=== PATIENT | female | born 1955 | race Caucasian/White ===

== ENCOUNTER → 2018-05-21 | Outpatient (CLI) | payer BC ==
--- NOTE | 2018-05-21 20:47 | Diagnostic Imaging Report ---
INDICATION: Routine screening. Comparison is made with prior mammogram from 11/26/2011. 2-D and 3-D bilateral screening mammography was performed with a Computer Aided Detection (CAD) system. FINDINGS: Scattered fibroglandular densities are identified bilaterally. Previously noted nodular density in the inferior and medial left breast is no longer visualized. No new masses identified. No malignant appearing microcalcifications are seen. The axillae are unremarkable. IMPRESSION: No mammographic features suspicious for malignancy are identified. ACR BI-RADS Category 1: Negative. Result letter will be mailed to the patient. Note: At least 10% of breast cancer is not imaged by mammography. Dictated by: Dictated on workstation # [id number]
== END ==
LOC: RAD 12:55
PROVIDERS: ATTEND Family Medicine
DX: Z12.31 Encounter for screening mammogram for malignant neoplasm of breast (principal)
CPT/HCPCS: 77067

== ENCOUNTER 2018-10-03 11:00 | Emergency (ER) | payer BC ==
[~2018-10-03] VITALS: Ht 162.6 cm; Wt 62.6 kg
[2018-10-03] MEDS ORDERED: fentaNYL INJECTION 100 MCG/2 ML AMP IVP STA ×2 (11:14→15:11)
[2018-10-03] MEDS ORDERED: LACTATED RINGERS 1,000 ML IV STA (11:14)
[2018-10-03] MEDS ORDERED: FAMOTIDINE 20MG/2ML IV (PEPCID) IV STA (11:14)
[2018-10-03] MEDS ORDERED: ONDANSETRON 4 MG/2 ML (SDV) Z0FRAN IVP ONE (11:15)
--- NOTE | 2018-10-03 11:23 | ED GI ---
General Stated Complaint: VOMITTING,FEVER,DIARRHEA Source of Information: Patient Exam Limitations: No Limitations History of Present Illness Date Seen by Provider: Oct 03, 2018 Time Seen by Provider: 11:08 Initial Comments Here with report of nausea, vomiting, diarrhea and epigastric and upper abdominal pain for the last 2 days. Onset 2 days ago with vomiting and vomited multiple times. States it hurts after that. Does have history of hepatitis C and sometimes has liver pain but this is worse than she's had before. Denies blood in her vomitus or stool. She is unable to take her medicines or drink any fluids for the last 2 days. Reports that she is weak overall. No report of fever. States that her enzymes been up recently with respect to her liver. Timing/Duration: 2-3 Days Severity/Quality: Moderate, Severe, Aching, Burning Location: Epigastric Radiation: RUQ, LUQ Activities at Onset: None Modifying Factors: Worsens With Eating Associated Symptoms: No Back Pain, No Chest Pain, No Fever/Chills; Fatigue, Heartburn, Nausea/Vomiting; No Shortness of Air, No Syncope; Weakness Allergies and Home Medications Allergies Coded Allergies: No Known Drug Allergies (Unverified , 10/03/18) Patient Home Medication List Home Medication List Reviewed: Yes Review of Systems Review of Systems Constitutional: see HPI EENTM: No Symptoms Reported Respiratory: Denies Shortness of Air, Denies Wheezing Cardiovascular: Denies Chest Pain, Denies Edema; Palpitations Gastrointestinal: Abdominal Pain, Diarrhea, Nausea; Denies Rectal Bleeding; Vomiting Genitourinary: No Symptoms Reported Musculoskeletal: no symptoms reported Skin: no symptoms reported Psychiatric/Neurological: See HPI All Other Systems Reviewed Negative Unless Noted: Yes Past Ssbjcal-Ozkzah-Nxhyxf Hx Past Med/Social Hx: Reviewed Nursing Past Med/Soc Hx Patient Social History Alcohol Use: Denies Use Recreational Drug Use: No Smoking Status: Current Someday Smoker Recent Foreign Travel: No Contact w/Someone Who Travel: No Past Medical History Surgeries: Yes (tubal 4, liver biopsy) Tonsillectomy Respiratory: No Cardiac: Yes Hypertension Neurological: No Reproductive Disorders: Yes Genitourinary: No Gastrointestinal: No Musculoskeletal: No Endocrine: Yes Diabetes, Non-Insulin dep Cancer: No Psychosocial: Yes Anxiety Family Medical History Reviewed Nursing Family Hx Heart Disease Physical Exam Vital Signs Vital Signs - First Documented 10/03/18 11:03 Temp 98.5 Pulse 120 Resp 14 B/P (MAP) 125/90 (102) Pulse Ox 94 O2 Delivery Room Air Capillary Refill : Height/Weight/BMI Height: '" Weight: lbs. oz. kg; BMI Method: General Appearance: WD/WN, moderate distress HEENT: PERRL/EOMI, pharynx normal Neck: full range of motion, supple Respiratory: lungs clear, normal breath sounds Cardiovascular: no murmur, tachycardia Peripheral Pulses: 2+ Dorsalis Pedis (R), 2+ Left Dors-Pedis (L), 2+ Radial Pulses (R), 2+ Radial Pulses (L) Gastrointestinal: soft, tenderness (epigastric and bilateral upper quadrants) Extremities: non-tender, normal inspection Back: normal inspection, no CVA tenderness, no vertebral tenderness Neurologic/Psychiatric: alert, oriented x 3 Skin: normal color, warm/dry Progress/Results/Core Measures Results/Orders Lab Results Laboratory Tests Test 10/03/18 11:20 10/03/18 12:50 Range/Units White Blood Count 22.6 H 4.3-11.0 10^3/uL Red Blood Count 4.21 L 4.35-5.85 10^6/uL Hemoglobin 12.9 11.5-16.0 G/DL Hematocrit 39 35-52 % Mean Corpuscular Volume 93 80-99 FL Mean Corpuscular Hemoglobin 31 25-34 PG Mean Corpuscular Hemoglobin Concent 33 32-36 G/DL Red Cell Distribution Width 14.7 H 10.0-14.5 % Platelet Count 271 130-400 10^3/uL Mean Platelet Volume 10.7 H 7.4-10.4 FL Neutrophils (%) (Auto) 75 42-75 % Lymphocytes (%) (Auto) 17 12-44 % Monocytes (%) (Auto) 8 0-12 % Eosinophils (%) (Auto) 0 0-10 % Basophils (%) (Auto) 0 0-10 % Neutrophils # (Auto) 17.0 H 1.8-7.8 X 10^3 Lymphocytes # (Auto) 3.8 1.0-4.0 X 10^3 Monocytes # (Auto) 1.7 H 0.0-1.0 X 10^3 Eosinophils # (Auto) 0.1 0.0-0.3 10^3/uL Basophils # (Auto) 0.1 0.0-0.1 10^3/uL Neutrophils % (Manual) 76 % Lymphocytes % (Manual) 15 % Monocytes % (Manual) 3 % Eosinophils % (Manual) 0 % Basophils % (Manual) 2 % Band Neutrophils 3 % Reactive Lymphocytes 1 % Blood Morphology Comment NORMAL Sodium Level 131 L 135-145 MMOL/L Potassium Level 3.8 3.6-5.0 MMOL/L Chloride Level 101 98-107 MMOL/L Carbon Dioxide Level 23 21-32 MMOL/L Anion Gap 7 5-14 MMOL/L Blood Urea Nitrogen 18 7-18 MG/DL Creatinine 0.99 0.60-1.30 MG/DL Estimat Glomerular Filtration Rate 57 BUN/Creatinine Ratio 18 Glucose Level 189 H 70-105 MG/DL Calcium Level 9.0 8.5-10.1 MG/DL Corrected Calcium 9.7 8.5-10.1 MG/DL Total Bilirubin 1.0 0.1-1.0 MG/DL Aspartate Amino Transf (AST/SGOT) 28 5-34 U/L Alanine Aminotransferase (ALT/SGPT) 35 0-55 U/L Alkaline Phosphatase 115 40-136 U/L Troponin I 0.030 H <0.028 NG/ML Total Protein 10.1 H 6.4-8.2 GM/DL Albumin 3.1 L 3.2-4.5 GM/DL Amylase Level 46 25-125 U/L Lipase 24 8-78 U/L Urine Color TONY H Urine Clarity CLEAR Urine pH 5 5-9 Urine Specific Santa Claus 1.025 H 1.016-1.022 Urine Protein 3+ H NEGATIVE Urine Glucose (UA) NEGATIVE NEGATIVE Urine Ketones 1+ H NEGATIVE Urine Nitrite NEGATIVE NEGATIVE Urine Bilirubin 1+ H NEGATIVE Urine Urobilinogen 1 NORMAL MG/DL Urine Leukocyte Esterase 1+ H NEGATIVE Urine RBC (Auto) 1+ H NEGATIVE Urine RBC RARE /HPF Urine WBC 0-2 /HPF Urine Squamous Epithelial Cells 0-2 /HPF Urine Crystals NONE /LPF Urine Bacteria FEW H /HPF Urine Casts PRESENT /LPF Urine Hyaline Casts 25-50 H /LPF Urine Granular Casts 2-5 H /LPF Urine Mucus SMALL H /LPF Urine Culture Indicated NO My Orders Orders - YESSY SANCHEZ MD Ondansetron Injection (Zofran Injectio (10/03/18 11:15) Lactated Ringers (Lr 1000 Ml Iv Solution (10/03/18 11:14) Famotidine Injection (Pepcid Injection) (10/03/18 11:14) Ed Iv/Invasive Line Start (10/03/18 11:14) Fentanyl Injection (Sublimaze Injection (10/03/18 11:14) Amylase (10/03/18 11:14) Cbc With Automated Diff (10/03/18 11:14) Comprehensive Metabolic Panel (10/03/18 11:14) Lipase (10/03/18 11:14) Ua Culture If Indicated (10/03/18 11:14) Troponin I (10/03/18 11:14) Ekg Tracing (10/03/18 11:14) Monitor-Rhythm Ecg Trace Only (10/03/18 11:14) Manual Differential (10/03/18 11:20) Ct Abdomen/Pelvis W (10/03/18 13:18) Iohexol Injection (Omnipaque 350 Mg/Ml 1 (10/03/18 14:00) Received Contrast (Hold Metformin- Contr (10/03/18 14:00) Sodium Chloride Flush (Catheter Flush Sy (10/03/18 14:00) Ns (Ivpb) (Sodium Chloride 0.9% Ivpb Bag (10/03/18 14:00) Ed Iv/Invasive Line Start (10/03/18 14:56) Ns Iv 1000 Ml (Sodium Chloride 0.9%) (10/03/18 14:56) Fentanyl Injection (Sublimaze Injection (10/03/18 15:11) Chest Pa/Lat (2 View) (10/03/18 15:14) Medications Given in ED Current Medications Medications Dose Ordered Sig/Bridger Route Start Time Stop Time Status Last Admin Dose Admin Iohexol 100 ml ONCE ONCE IV 10/03/18 14:00 10/03/18 14:01 DC 10/03/18 14:04 79 ML Ondansetron HCl 4 mg ONCE ONCE IVP 10/03/18 11:15 10/03/18 11:18 DC 10/03/18 11:27 4 MG Sodium Chloride 10 ml NEEDED PRN IV 10/03/18 14:00 10/03/18 14:05 10 ML Sodium Chloride 100 ml ONCE ONCE IV 10/03/18 14:00 10/03/18 14:01 DC 10/03/18 14:04 80 ML Sodium Chloride 1,000 ml @ 0 mls/hr Q0M ONCE IV 10/03/18 14:56 10/03/18 14:58 DC 10/03/18 16:50 1,000 MLS/HR Vital Signs/I&O 10/03/18 10/03/18 11:03 16:24 Temp 98.5 Pulse 120 88 Resp 14 16 B/P (MAP) 125/90 (102) 122/76 (91) Pulse Ox 94 94 O2 Delivery Room Air Progress Progress Note : Progress Note Seen and evaluated. IV, labs, UA, LR 1 L bolus, Zofran 4 mg IV and fentanyl 50 g IV ordered. Pepcid 20 mg IV ordered. We will check EKG. Monitor patient. 1318: CT abdomen pelvis ordered due to markedly elevated white count. Patient is feeling better after meds. 1705: Patient did have repeat fentanyl 50 g IV. Overall her pain is much better. CT is very concerning for a mass within the liver and extrinsic to the liver. This was discussed with the radiologist. We did get a chest x-ray to evaluate for mass in the chest and that was negative. I have discussed the case with Dr. Vilchis who was working on setting up appointment with Dr. Sukhwinder Lynne at the clinic and the clinic will call the patient on Saturday. I also discussed the case with Dr. Mackenzie and he will see the patient late Saturday or Saturday for further evaluation as well and to set her up for colonoscopy and further evaluation through the surgical round. All of this was discussed with the patient and family who are very appreciative of help with setting up follow-up. I will write for pain medicines through Saturday given her findings of likely metastatic cancer and mass as well as nausea medicines. I will send a copy of the chart to Dr. Lynne and Dr. Mackenzie. Patient did receive additional liter of fluid for hydration and due to contrast. She is tolerating ice chips and sips okay. Discharged home with return precautions. Patient verbalize understanding instructions and agreement with plan. Initial ECG Impression Date: Oct 03, 2018 Initial ECG Impression Time: 11:40 Initial ECG Rate: 97 Initial ECG Rhythm: Normal Sinus Comment Sinus rhythm with normal axis. No evidence of ST elevation HI. No previous available for comparison. Interpreted by me. Diagnostic Imaging Diagonstic Imaging: CT Plain Films/CT/US/NM/MRI: abdomen, pelvis Comments [facility] [place], [place] NAME: IGOR SALGADO [facility] REC#: [id number] PT STATUS: REG ER : 1955 PHYSICIAN: YESSY SANCHEZ MD ADMIT DATE: 10/03/18/ER Draft Date of Exam:10/03/18 CT ABDOMEN/PELVIS W PROCEDURE: CT abdomen and pelvis with contrast. TECHNIQUE: Multiple contiguous axial images were obtained through the abdomen and pelvis after administration of intravenous contrast. Auto Exposure Controls were utilized during the CT exam to meet ALARA standards for radiation dose reduction. INDICATION: Fever, vomiting, diarrhea, pain, symptoms eight days in duration. COMPARISON: I have no previous. FINDINGS: There is a mass in the right hepatic lobe superiorly and posterolaterally measuring 3.5 cm. There is a large mass in the right upper quadrant in a portacaval distribution measuring 7.1 x 5.3 cm. This has soft tissue as well as cystic components. This is right of and displaces towards the left. The head and uncinate process of the pancreas from which it while adjacent does appear separable from the pancreatic duct was nondilated. There is a predominantly cystic mass more cephalad in the caudate lobe of the liver measuring 4 cm. There is normal opacification of intra and extrahepatic portal venous branches. The intrahepatic cava and the hepatic veins are patent. Liver density is consistent with some fatty infiltration. Spleen is nonfocal and normal in size. Stomach is nondistended. I am unable to follow portions of the first and second duodenum. The adrenals are negative. Kidneys are unobstructed. There is no basilar pulmonary nodule, infiltrate, or effusion. There are subacute healed or healing posterior lower rib fractures. There is marked spondylosis and presumed benign sclerosis of multiple lower thoracic vertebral bodies. An acute bony abnormality not identified. No identifiable colonic mass or colonic obstruction. Periaortic retroperitoneum, ilioinguinal lymph node chains, and pelvic sidewalls are unremarkable. Urinary bladder and urinary tracts are unremarkable. There is no ascites. IMPRESSION: Hepatic and right upper quadrant masses suspect for metastatic disease of uncertain primary. As discussed above, the pancreas is felt displaced by a large portacaval lesion but is felt to be intrinsically unremarkable. Lesional sampling could be performed percutaneously with CT guidance. No bowel, biliary, or urinary tract obstruction. No ascites. Results discussed with the ER physician. Dictated on workstation # [id number] Dict: 10/03/18 1404 Trans: 10/03/18 1444 [facility] [id number] Interpreted by: STAR POOL Electronically signed by: Diagonstic Imaging: Xray Plain Films/CT/US/NM/MRI: chest Comments [facility]. [place], [place] NAME: IGOR SALGADO [facility] REC#: [id number] PT STATUS: REG ER : 1955 PHYSICIAN: YESSY SANCHEZ MD ADMIT DATE: 10/03/18/ER Draft Date of Exam:10/03/18 CHEST PA/LAT (2 VIEW) INDICATION: Fever, nausea, and vomiting. FINDINGS: Lungs are clear. Heart and vessels are normal. There is no effusion or pneumothorax. IMPRESSION: No acute-appearing abnormality. Dictated on workstation # [id number] Dict: 10/03/18 1551 Trans: 10/03/18 1603 [id number] Interpreted by: STAR POOL Electronically signed by: Departure Impression Primary Impression: Liver mass Additional Impressions: Abdominal mass, RUQ (right upper quadrant) Vomiting and diarrhea Disposition: 01 HOME, SELF-CARE Condition: Stable Departure-Patient Inst. Decision time for Depature: 17:09 Referrals: RODERICK VILCHIS DO (PCP) Primary Care Physician LAUREEN BROWN (Family) Primary Care Physician NATANAEL MACKENZIE JULIE A MD Patient Instructions: Acute Abdomen (Belly Pain), Adult (DC), Diarrhea in Adolescents and Adults, Nausea and Vomiting, Adult (DC) Add. Discharge Instructions: Drink plenty of fluids. Eat a light diet by taking small meals frequently versus any large meal. Avoid spicy or heaviness. You need to call Dr. Mackenzie's office on Saturday morning for appointment with him late Saturday or Saturday. Let his office know that the case was discussed with him and he once to see you. You should get a call from the clinic for appointment with Dr. Lynne. If you have not heard from them by Saturday, call clinic for appointment. Let them know the case was discussed with Dr. Vilchis who wants you seen by Dr. Lynne. If you're unable to get through, please call me back here in the emergency department on Saturday or Saturday and I will assist with helping you get the appointment. Take medications as directed. Return for worse pain, fever, vomiting, unable to drink fluids, blood in your vomit or stool, breathing problems or other concerns as needed. Scripts Hydrocodone Bit/Acetaminophen (Hydrocodone/Acetaminophen 5/325mg Tablet) 1 Tab Tab 1 EACH PO Q4-6HR PRN for PAIN-MODERATE MDD 10 for 4 Days, #16 TAB For pain related to liver mass Prov: YESSY SANCHEZ MD 10/03/18 Ondansetron (Ondansetron Odt) 4 Mg Tab.rapdis 4 MG PO Q6H PRN for NAUSEA/VOMITING, #12 TAB 0 Refills Prov: YESSY SANCHEZ MD 10/03/18 Copy Copies To 1: SUKHWINDER LYNNE MD Copies To 2: NATANAEL MACKENZIE TIMOTHY D MD Oct 03, 2018 11:23
[2018-10-03 11:30] LABS: BASOPHILS # (AUTO) 0.1 10^3/uL (0.0-0.1); BASOPHILS % (AUTO) 0 % (0-10); EOSINOPHILS # (AUTO) 0.1 10^3/uL (0.0-0.3); EOSINOPHILS % (AUTO) 0 % (0-10); HEMATOCRIT 39 % (35-52); HEMOGLOBIN 12.9 G/DL (11.5-16.0); LYMPHOCYTES # (AUTO) 3.8 X 10^3 (1.0-4.0); LYMPHOCYTES % (AUTO) 17 % (12-44); MEAN CORPUSCULAR HEMOGLOBIN 31 PG (25-34); MEAN CORPUSCULAR HGB CONC 33 G/DL (32-36); MEAN CORPUSCULAR VOLUME 93 FL (80-99); MEAN PLATELET VOLUME 10.7 FL (7.4-10.4); MONOCYTES # (AUTO) 1.7 X 10^3 (0.0-1.0); MONOCYTES % (AUTO) 8 % (0-12); NEUTROPHILS % (AUTO) 75 % (42-75); PLATELET COUNT 271 10^3/uL (130-400); RED CELL DISTRIBUTION WIDTH 14.7 % (10.0-14.5); WHITE BLOOD COUNT 22.6 10^3/uL (4.3-11.0)
[2018-10-03 11:48] LABS: ALBUMIN 3.1 GM/DL (3.2-4.5); CREATININE SERUM 0.99 MG/DL (0.60-1.30); POTASSIUM 3.8 MMOL/L (3.6-5.0); TOTAL PROTEIN 10.1 GM/DL (6.4-8.2)
[2018-10-03 12:07] LABS: BAND NEUTROPHILS 3 %; BASOPHILS % (MANUAL) 2 %; EOSINOPHILS % (MANUAL) 0 %; LYMPHOCYTES % (MANUAL) 15 %; MONOCYTES % (MANUAL) 3 %; NEUTROPHILS % (MANUAL) 76 %
[2018-10-03 12:08] LABS: RBC MORPH NORMAL; REACTIVE LYMPHOCYTES 1 %
--- NOTE | 2018-10-03 13:03 | NUR ---
Report given to IVANNA Tidwell
[2018-10-03 13:04] LABS: CLARITY,URINE CLEAR; COLOR,URINE AMBER; GLUCOSE, URINE (UA) NEGATIVE (NEGATIVE); KETONES,URINE 1+ (NEGATIVE); LEUKOCYTE ESTERASE ,URINE 1+ (NEGATIVE); NITRITE,URINE NEGATIVE (NEGATIVE); PH,URINE 5 (5-9); PROTEIN,URINE 3+ (NEGATIVE); UROBILINOGEN,URINE 1 MG/DL (NORMAL)
[2018-10-03 13:19] LABS: BACTERIA,URINE FEW /HPF; BILIRUBIN,URINE 1+ (NEGATIVE); RBC,URINE RARE /HPF; SQUAMOUS EPITHELIAL CELL,UR 0-2 /HPF; WBC,URINE 0-2 /HPF
[2018-10-03 13:20] LABS: HYALINE CASTS, URINE 25-50 /LPF
[2018-10-03] MEDS ORDERED: HOLD METFORMIN - RECEIVED CONTRAST 20 ML VIAL IV SCH (14:00)
[2018-10-03] MEDS ORDERED: NS 100 ML (IVPB) BAG IV ONE (14:00)
[2018-10-03] MEDS ORDERED: CATHETER FLUSH 10 ML SYR IV PRN (14:00)
[2018-10-03] MEDS ORDERED: IOHEXOL 350 MG/ML 100 ML (OMNIPAQUE 350) VIAL IV ONE (14:00)
--- NOTE | 2018-10-03 14:45 | Diagnostic Imaging Report ---
PROCEDURE: CT abdomen and pelvis with contrast. TECHNIQUE: Multiple contiguous axial images were obtained through the abdomen and pelvis after administration of intravenous contrast. Auto Exposure Controls were utilized during the CT exam to meet ALARA standards for radiation dose reduction. INDICATION: Fever, vomiting, diarrhea, pain, symptoms eight days in duration. COMPARISON: I have no previous. FINDINGS: There is a mass in the right hepatic lobe superiorly and posterolaterally measuring 3.5 cm. There is a large mass in the right upper quadrant in a portacaval distribution measuring 7.1 x 5.3 cm. This has soft tissue as well as cystic components. This is right of and displaces towards the left. The head and uncinate process of the pancreas from which it while adjacent does appear separable from the pancreatic duct was nondilated. There is a predominantly cystic mass more cephalad in the caudate lobe of the liver measuring 4 cm. There is normal opacification of intra and extrahepatic portal venous branches. The intrahepatic cava and the hepatic veins are patent. Liver density is consistent with some fatty infiltration. Spleen is nonfocal and normal in size. Stomach is nondistended. I am unable to follow portions of the first and second duodenum. The adrenals are negative. Kidneys are unobstructed. There is no basilar pulmonary nodule, infiltrate, or effusion. There are subacute healed or healing posterior lower rib fractures. There is marked spondylosis and presumed benign sclerosis of multiple lower thoracic vertebral bodies. An acute bony abnormality not identified. No identifiable colonic mass or colonic obstruction. Periaortic retroperitoneum, ilioinguinal lymph node chains, and pelvic sidewalls are unremarkable. Urinary bladder and urinary tracts are unremarkable. There is no ascites. IMPRESSION: Hepatic and right upper quadrant masses suspect for metastatic disease of uncertain primary. As discussed above, the pancreas is felt displaced by a large portacaval lesion but is felt to be intrinsically unremarkable. Lesional sampling could be performed percutaneously with CT guidance. No bowel, biliary, or urinary tract obstruction. No ascites. Results discussed with the ER physician. Dictated by: Dictated on workstation # [id number]
[2018-10-03] MEDS ORDERED: NS IV 1000 ML 1,000 ML IV ONE (14:56)
--- NOTE | 2018-10-03 16:04 | Diagnostic Imaging Report ---
INDICATION: Fever, nausea, and vomiting. FINDINGS: Lungs are clear. Heart and vessels are normal. There is no effusion or pneumothorax. IMPRESSION: No acute-appearing abnormality. Dictated by: Dictated on workstation # [id number]
[2018-10-03 16:24] VITALS: BP 122/76
[2018-10-03] MEDS ORDERED: ONDA4TAB11 PO (17:13)
[2018-10-03] MEDS ORDERED: ACHD5005 PO (17:13)
[2018-10-03 17:35] VITALS: BP 150/60
== END 2018-10-03 17:37 | disposition home or self-care (01) ==
LOC: EDUNIT# 11:00 → ER 11:02
DX: R16.0 Hepatomegaly, not elsewhere classified (principal); R19.00 Intra-abdominal and pelvic swelling, mass and lump, unspecified site; R19.7 Diarrhea, unspecified; R10.11 Right upper quadrant pain; R11.2 Nausea with vomiting, unspecified; B19.20 Unspecified viral hepatitis C without hepatic coma; I10 Essential (primary) hypertension; E11.9 Type 2 diabetes mellitus without complications; F41.9 Anxiety disorder, unspecified; F17.200 Nicotine dependence, unspecified, uncomplicated; Z90.89 Acquired absence of other organs; Z82.49 Family history of ischemic heart disease and other diseases of the circulatory system
CPT/HCPCS: 36415; 71046; 74177; 80053; 81000; 82150; 83690; 84484; 85007; 85027; 93005; 93041; 96374; 96375; 96376

== ENCOUNTER → 2018-11-19 | Outpatient (CLI) | payer BC ==
[~2018-11-19] MED LIST: ACHD5005 PO; ONDA4TAB11 PO
== END ==
LOC: CARD 13:54
PROVIDERS: ATTEND Internal Medicine
DX: C22.0 Liver cell carcinoma (principal)
CPT/HCPCS: 93306

== ENCOUNTER → 2018-11-19 | Outpatient (CLI) | payer BC ==
[2018-11-19 14:28] LABS: BASOPHILS % (AUTO) 1 % (0-10); EOSINOPHILS # (AUTO) 0.2 10^3/uL (0.0-0.3); EOSINOPHILS % (AUTO) 3 % (0-10); HEMATOCRIT 37 % (35-52); HEMOGLOBIN 11.7 G/DL (11.5-16.0); LYMPHOCYTES # (AUTO) 1.5 X 10^3 (1.0-4.0); LYMPHOCYTES % (AUTO) 18 % (12-44); MEAN CORPUSCULAR HEMOGLOBIN 30 PG (25-34); MEAN CORPUSCULAR HGB CONC 32 G/DL (32-36); MEAN CORPUSCULAR VOLUME 93 FL (80-99); MONOCYTES # (AUTO) 0.6 X 10^3 (0.0-1.0); MONOCYTES % (AUTO) 7 % (0-12); NEUTROPHILS # (AUTO) 6.2 X 10^3 (1.8-7.8); NEUTROPHILS % (AUTO) 73 % (42-75); PLATELET COUNT 284 10^3/uL (130-400); RED CELL DISTRIBUTION WIDTH 15.7 % (10.0-14.5); WHITE BLOOD COUNT 8.5 10^3/uL (4.3-11.0)
[2018-11-19 14:54] LABS: ALANINE AMINOTRANSFERASE 36 U/L (0-55); ALBUMIN 2.9 GM/DL (3.2-4.5); ALKALINE PHOSPHATASE 149 U/L (40-136); BILIRUBIN,TOTAL 0.6 MG/DL (0.1-1.0); BUN/CREATININE RATIO 9; CALCIUM 8.5 MG/DL (8.5-10.1); CARBON DIOXIDE 26 MMOL/L (21-32); CHLORIDE 104 MMOL/L (98-107); CREATININE SERUM 0.77 MG/DL (0.60-1.30); GFR ESTIMATED > 60; GLUCOSE 160 MG/DL (70-105); POTASSIUM 3.8 MMOL/L (3.6-5.0); SODIUM 135 MMOL/L (135-145); TOTAL PROTEIN 9.1 GM/DL (6.4-8.2)
== END ==
LOC: LAB 14:01
PROVIDERS: ATTEND Internal Medicine
DX: C22.0 Liver cell carcinoma (principal)
CPT/HCPCS: 36415; 80053; 84443; 85025

== ENCOUNTER 2019-02-23 03:27 | Emergency (ER) | payer BC ==
[2019-02-23] MEDS ORDERED: NS IV 500 ML 500 ML IV ONE (04:55)
[2019-02-23] MEDS ORDERED: morphine INJ 10 MG/ML 1ML (SYR OR VIAL) IVP ONE (05:00)
[2019-02-23] MEDS ORDERED: LORazepam INJ 2 MG/ML (ATIVAN) VIAL IVP ONE (05:00)
--- NOTE | 2019-02-23 05:04 | ED General ---
General Chief Complaint: Lower Extremity Stated Complaint: SWOLLEN FEET, NOT FEELING WELL Source of Information: Patient Exam Limitations: No Limitations History of Present Illness Date Seen by Provider: Feb 23, 2019 Time Seen by Provider: 04:34 Initial Comments Here with report of being quite anxious and not feeling well. Patient has liver cancer and currently is undergoing treatment for that. She has back pain as well as will. She follows with [facility] and with Dr. Sukhwinder Lynne. She has prescriptions for lorazepam and hydrocodone but has not had them filled yet. States that her mind has been racing and she is been quite anxious. She's been unable to sleep for a few days and is getting quite fatigued. She definitely has or is related to her physical health. was concerned because she's been crying for the last day and a half and he was concerned that there may be something worse going on. She does complain of swelling in her feet and both feet are hurting. She reports pins and needles sensation of both feet. Does have nausea that is chronic but not vomiting currently. She does report that the oral chemotherapeutic agent that she is taking which is specific for her chronic cancer is helping and that she has had 30% reduction in the size reportedly. She and her are both hopeful but also appropriately concerned and anxious regarding her medical health. Timing/Duration: 2-3 Days, Getting Worse Severity: Moderate Associated Systoms: No Chest Pain, No Cough, No Fever/Chills; Nausea/Vomiting; No Shortness of Air, No Weakness Allergies and Home Medications Allergies Coded Allergies: No Known Drug Allergies (Unverified , 10/03/18) Home Medications Hydrocodone Bit/Acetaminophen 1 Tab Tab, 1 EACH PO Q4-6HR PRN for PAIN-MODERATE For pain related to liver mass Prescribed by: YESSY SANCHEZ on 10/03/181712 Ondansetron 4 Mg Tab.rapdis, 4 MG PO Q6H PRN for NAUSEA/VOMITING Prescribed by: YESSY SANCHEZ on 10/03/181712 Patient Home Medication List Home Medication List Reviewed: Yes Review of Systems Review of Systems Constitutional: see HPI; No chills, No fever EENTM: no symptoms reported Respiratory: no symptoms reported Cardiovascular: No chest pain; edema Gastrointestinal: abdominal pain, nausea; No vomiting Genitourinary: no symptoms reported Musculoskeletal: back pain, muscle pain Skin: No change in color, No lesions Psychiatric/Neurological: Anxiety, Depressed, Tingling Hematologic/Lymphatic: No Symptoms Reported All Other Systems Reviewed Negative Unless Noted: Yes Past Oafugct-Vmfyro-Mgqryd Hx Past Med/Social Hx: Reviewed Nursing Past Med/Soc Hx Patient Social History Alcohol Use: Denies Use Recreational Drug Use: No Smoking Status: Former Smoker Type Used: Cigarettes 2nd Hand Smoke Exposure: Yes Recent Foreign Travel: No Contact w/Someone Who Travel: No Past Medical History Surgeries: Yes (tubal 4, liver biopsy) Tonsillectomy Respiratory: No Cardiac: Yes Hypertension Neurological: No Reproductive Disorders: Yes Genitourinary: No Gastrointestinal: No Musculoskeletal: No Endocrine: Yes Diabetes, Non-Insulin dep HEENT: No Cancer: No Psychosocial: Yes Anxiety Integumentary: No Blood Disorders: Yes (hep c) Family Medical History Reviewed Nursing Family Hx Heart Disease Physical Exam Vital Signs Capillary Refill : Height, Weight, BMI Height: 5'4.00" Weight: 138lbs. oz. 62.846857cy; BMI Method:Stated General Appearance: No Apparent Distress, Anxious HEENT: PERRL/EOMI, Pharynx Normal Neck: Non Tender, Supple Respiratory: Lungs Clear, Normal Breath Sounds Cardiovascular: Regular Rate, Rhythm, No Murmur Gastrointestinal: Non Tender, Soft Back: Other (has chain of nodules in the low back on the left. These are mostly nontender. No erythema.) Extremity: Normal Range of Motion, Non Tender, Pedal Edema (1+ to bilateral feet) Neurologic/Psychiatric: Alert, Oriented x3 Skin: Normal Color, Warm/Dry Progress/Results/Core Measures Suspected Sepsis SIRS Temperature: Pulse: Respiratory Rate: Laboratory Tests 02/23/19 05:05: White Blood Count 7.2 Blood Pressure / Mean: Laboratory Tests 02/23/19 05:05: Platelet Count 192 Results/Orders Lab Results Laboratory Tests Test 02/23/19 05:05 Range/Units White Blood Count 7.2 4.3-11.0 10^3/uL Red Blood Count 4.83 4.35-5.85 10^6/uL Hemoglobin 15.2 11.5-16.0 G/DL Hematocrit 43 35-52 % Mean Corpuscular Volume 89 80-99 FL Mean Corpuscular Hemoglobin 32 25-34 PG Mean Corpuscular Hemoglobin Concent 35 32-36 G/DL Red Cell Distribution Width 16.1 H 10.0-14.5 % Platelet Count 192 130-400 10^3/uL Mean Platelet Volume 10.8 H 7.4-10.4 FL Neutrophils (%) (Auto) 61 42-75 % Lymphocytes (%) (Auto) 27 12-44 % Monocytes (%) (Auto) 9 0-12 % Eosinophils (%) (Auto) 3 0-10 % Basophils (%) (Auto) 1 0-10 % Neutrophils # (Auto) 4.4 1.8-7.8 X 10^3 Lymphocytes # (Auto) 2.0 1.0-4.0 X 10^3 Monocytes # (Auto) 0.6 0.0-1.0 X 10^3 Eosinophils # (Auto) 0.2 0.0-0.3 10^3/uL Basophils # (Auto) 0.0 0.0-0.1 10^3/uL My Orders Orders - YESSY SANCHEZ MD Morphine Injection (Morphine Injection (02/23/19 05:00) Cbc With Automated Diff (02/23/19 04:55) Comprehensive Metabolic Panel (02/23/19 04:55) Ed Iv/Invasive Line Start (02/23/19 04:55) Lorazepam Injection (Ativan Injection) (02/23/19 05:00) Ed Iv/Invasive Line Start (02/23/19 04:55) Ns Iv 500 Ml (Sodium Chloride 0.9%) (02/23/19 04:55) Medications Given in ED Current Medications Medications Dose Ordered Sig/Bridger Route Start Time Stop Time Status Last Admin Dose Admin Lorazepam 0.5 mg ONCE ONCE IVP 02/23/19 05:00 02/23/19 05:01 DC 02/23/19 05:05 0.5 MG Morphine Sulfate 4 mg ONCE ONCE IVP 02/23/19 05:00 02/23/19 05:01 DC 02/23/19 05:08 4 MG Sodium Chloride 500 ml @ 0 mls/hr Q0M ONCE IV 02/23/19 04:55 02/23/19 04:58 DC 02/23/19 05:06 0 MLS/HR Vital Signs/I&O Capillary Refill : Progress Note : Progress Note Seen and evaluated. IV, labs, normal saline 500 mL bolus ordered. Morphine 4 mg IV and Ativan 0.5 mg IV ordered. Monitor patient. 0540: Overall much improved. Labs unremarkable. I will write a small prescription for lorazepam and a few hydrocodone so that she has time to get in with her doctor early this week. She has appointment at on Saturday and he will keep that appointment. Discharged home with return precautions. Patient and family verbalized understanding of instructions and agreement with plan. Departure Impression Primary Impression: Anxiety Additional Impression: Liver cancer Qualified Codes: C22.9 - Malignant neoplasm of liver, not specified as primary or secondary Disposition: HOME, SELF-CARE Condition: Improved Departure-Patient Inst. Decision time for Depature: 05:42 Referrals: NO,LOCAL PHYSICIAN (PCP) Primary Care Physician LAUREEN BROWN (Family) Primary Care Physician Patient Instructions: Anxiety, Adult (DC), Liver Cancer (DC) Add. Discharge Instructions: All discharge instructions reviewed with patient and/or family. Voiced understanding. Take medications as directed. You need to call and make appointment with Dr. Sukhwinder Lynne for refills of your meds. Keep your appointment at tomorrow as scheduled. Drink plenty of fluids and get some rest. Return for worse pain, fever, vomiting, weakness, breathing problems or other concerns as needed. Scripts Hydrocodone Bit/Acetaminophen (Hydrocodone/Acetaminophen 5/325mg Tablet) 1 Tab Tab 1 EACH PO Q4-6HR PRN for PAIN-MODERATE MDD 10 for 3 Days, #10 TAB 0 Refills Prov: YESSY SANCHEZ MD 02/23/19 Lorazepam (Lorazepam) 1 Mg Tablet 1 MG PO DAILY PRN for ANXIETY, #6 TAB 0 Refills Prov: YESSY SANCHEZ MD 02/23/19 Copy Copies To 1: SUKHWINDER LYNNE MD, TIMOTHY D MD Feb 23, 2019 05:04 POS
[2019-02-23 05:12] LABS: BASOPHILS % (AUTO) 1 % (0-10); EOSINOPHILS # (AUTO) 0.2 10^3/uL (0.0-0.3); EOSINOPHILS % (AUTO) 3 % (0-10); HEMATOCRIT 43 % (35-52); HEMOGLOBIN 15.2 G/DL (11.5-16.0); LYMPHOCYTES % (AUTO) 27 % (12-44); MEAN CORPUSCULAR HEMOGLOBIN 32 PG (25-34); MEAN CORPUSCULAR HGB CONC 35 G/DL (32-36); MEAN CORPUSCULAR VOLUME 89 FL (80-99); MEAN PLATELET VOLUME 10.8 FL (7.4-10.4); MONOCYTES # (AUTO) 0.6 X 10^3 (0.0-1.0); MONOCYTES % (AUTO) 9 % (0-12); NEUTROPHILS # (AUTO) 4.4 X 10^3 (1.8-7.8); NEUTROPHILS % (AUTO) 61 % (42-75); PLATELET COUNT 192 10^3/uL (130-400); RED CELL DISTRIBUTION WIDTH 16.1 % (10.0-14.5); WHITE BLOOD COUNT 7.2 10^3/uL (4.3-11.0)
[2019-02-23 05:34] LABS: ALBUMIN 3.5 GM/DL (3.2-4.5); BILIRUBIN,TOTAL 0.5 MG/DL (0.1-1.0); CALCIUM 9.3 MG/DL (8.5-10.1); CREATININE SERUM 0.94 MG/DL (0.60-1.30); POTASSIUM 4.5 MMOL/L (3.6-5.0); TOTAL PROTEIN 8.7 GM/DL (6.4-8.2)
[2019-02-23] MEDS ORDERED: LORA1TAB PO (05:45)
[2019-02-23] MEDS ORDERED: ACHD5005 PO (05:45)
[2019-02-23 06:20] VITALS: BP 160/96
== END 2019-02-23 06:20 | disposition home or self-care (01) ==
LOC: EDUNIT# 03:27 → ER 03:30
DX: F41.9 Anxiety disorder, unspecified (principal); C22.9 Malignant neoplasm of liver, not specified as primary or secondary; I10 Essential (primary) hypertension; E11.9 Type 2 diabetes mellitus without complications; B19.20 Unspecified viral hepatitis C without hepatic coma; Z87.891 Personal history of nicotine dependence; Z77.22 Contact with and (suspected) exposure to environmental tobacco smoke (acute) (chronic); Z90.89 Acquired absence of other organs
CPT/HCPCS: 36415; 80053; 85025

== ENCOUNTER 2019-03-05 09:25 | Emergency (ER) | payer BC ==
[~2019-03-05] VITALS: Ht 157.5 cm; Wt 55.8 kg
[~2019-03-05 09:25] MED LIST changes: +LORA1TAB PO
[2019-03-05] MEDS ORDERED: NS IV 500 ML 500 ML IV ONE (09:49)
--- NOTE | 2019-03-05 09:56 | ED Respiratory ---
General Chief Complaint: Cough/Cold/Flu Symptoms Stated Complaint: POSS FLU/SINUS ISSUES Nursing Triage Note: PT AMBULATE TO ROOM 07 WITH C/O FLU LIKE SYMPTOMS. PT REPORTS RECEIVING TX FOR CANCER. PT REPORTS RUNNY/STUFFY NOSE. Source: patient, spouse Exam Limitations: no limitations History of Present Illness Date Seen by Provider: Mar 05, 2019 Time Seen by Provider: 09:34 Initial Comments Patient presents to ER by private conveyance with her significant other and chief complaint for the past 4 weeks been dealing with respiratory symptoms shortness of breath cough but no wheezing or history of COPD. She does not smoke cigarettes. She was diagnosed 2 weeks ago with influenza. She has a recent diagnosis in the past couple months of hepatocellular carcinoma with distant metastases and a small-sized tumor. She is seen [facility] for oncology and is on daily chemotherapy which she did take this morning along with her nausea medicines. She also takes metformin for diabetes. She's not having any chest pain. She just noticed increased fatigue and swelling around her feet the last couple days. She went to her primary care Dr. Aicha Merrill who prescribed her Lasix which she took one time yesterday which helped with her swelling around her feet. She had labs drawn at that time and today they were reviewed by the primary care doctor and she was told that she had dehydration and needed to go to the hospital for management. She was sent here by the hospitalist for evaluation and stabilization. She denies any nausea but she did have diarrhea until about 5 days ago when the loperamide stopped it. She had a bowel movement about 2 days ago. She uses hydrocodone as necessary for an occasional burning pain in her right upper quadrant abdomen which is not new. She says she is on 3 different blood pressure medicines plus the Lasix was recently started. Allergies and Home Medications Allergies Coded Allergies: No Known Drug Allergies (Unverified , 10/03/18) Home Medications Hydrocodone Bit/Acetaminophen 1 Tab Tab, 1 EACH PO Q4-6HR PRN for PAIN-MODERATE For pain related to liver mass Prescribed by: YESSY SANCHEZ on 10/03/18 1713 Hydrocodone Bit/Acetaminophen 1 Tab Tab, 1 EACH PO Q4-6HR PRN for PAIN-MODERATE Prescribed by: YESSY SANCHEZ on 02/23/19 0515 Lorazepam 1 Mg Tablet, 1 MG PO DAILY PRN for ANXIETY Prescribed by: YESSY SANCHEZ on 02/23/19 0545 Ondansetron 4 Mg Tab.rapdis, 4 MG PO Q6H PRN for NAUSEA/VOMITING Prescribed by: YESSY SANCHEZ on 10/03/18 7936 Patient Home Medication List Home Medication List Reviewed: Yes Review of Systems Review of Systems Constitutional: No chills, No diaphoresis, No fever; malaise, weakness EENTM: nose congestion; No ear discharge, No ear pain, No mouth pain, No throat swelling Respiratory: cough; No phlegm; short of breath; No wheezing Cardiovascular: No chest pain, No edema Gastrointestinal: abdominal pain (occasional, right upper quadrant, chronic); No constipation, No nausea, No vomiting Genitourinary: No discharge, No dysuria Musculoskeletal: No back pain, No joint pain Skin: No pruritus, No rash Psychiatric/Neurological: Denies Headache, Denies Numbness, Denies Paresthesia All Other Systems Reviewed Negative Unless Noted: Yes Past Otyrylx-Bvanvk-Pgdxda Hx Patient Social History Alcohol Use: Past History Recreational Drug Use: No Smoking Status: Former Smoker Type Used: Cigarettes 2nd Hand Smoke Exposure: Yes Recent Foreign Travel: No Contact w/Someone Who Travel: No Recent Infectious Disease Expo: No Physical Abuse: No Sexual Abuse: No Mistreated: No Fear: No Past Medical History Surgeries: Yes (tubal 4, liver biopsy) Tonsillectomy Respiratory: No Cardiac: Yes Hypertension Neurological: No Reproductive Disorders: Yes Genitourinary: No Gastrointestinal: No Musculoskeletal: No Endocrine: Yes Diabetes, Non-Insulin dep HEENT: No Cancer: Yes Liver, Stomach Did You Recieve Any Treatments: Yes What Type of Treatment Did You: Chemotherapy, Radiation Psychosocial: Yes Anxiety Integumentary: No Blood Disorders: Yes (hep c) Family Medical History Heart Disease Physical Exam Vital Signs - First Documented 03/05/19 03/05/19 09:38 10:40 Temp 36.9 Pulse 74 Resp 19 B/P (MAP) 156/99 (118) Pulse Ox 97 O2 Delivery Room Air Capillary Refill : Less Than 3 Seconds Height: 5'4.00" Weight: 138lbs. oz. 62.008465va; 22.00 BMI Method:Stated General Appearance: WD/WN, mild distress Eyes: Bilateral Eye Normal Inspection, Bilateral Eye PERRL, Bilateral Eye EOMI HEENT: PERRL/EOMI, normal ENT inspection, TMs normal, pharynx normal (oral mucosa is mildly dry) Neck: non-tender, full range of motion, supple, normal inspection Respiratory: chest non-tender, lungs clear, normal breath sounds, no respiratory distress, no accessory muscle use Cardiovascular: normal peripheral pulses, regular rate, rhythm, no edema Gastrointestinal: normal bowel sounds, non tender, soft Neurologic/Psychiatric: alert, normal mood/affect, oriented x 3 Skin: normal color, warm/dry Progress/Results/Core Measures Suspected Sepsis Recent Fever Within 48 Hours: No Infection Criteria Present: None New/Unexplained Altered Menta: No Sepsis Screen: No Definite Risk SIRS Temperature: Pulse: 74 Respiratory Rate: 19 Laboratory Tests 03/05/19 09:54: White Blood Count 6.4 Blood Pressure 156 /99 Mean: 118 Laboratory Tests 03/05/19 09:54: Creatinine 1.00, INR Comment 1.1, Platelet Count 314, Total Bilirubin 0.5 Results/Orders Lab Results Laboratory Tests Test 03/05/19 09:54 03/05/19 11:18 Range/Units White Blood Count 6.4 4.3-11.0 10^3/uL Red Blood Count 4.96 4.35-5.85 10^6/uL Hemoglobin 15.7 11.5-16.0 G/DL Hematocrit 45 35-52 % Mean Corpuscular Volume 90 80-99 FL Mean Corpuscular Hemoglobin 32 25-34 PG Mean Corpuscular Hemoglobin Concent 35 32-36 G/DL Red Cell Distribution Width 15.6 H 10.0-14.5 % Platelet Count 314 130-400 10^3/uL Mean Platelet Volume 10.6 H 7.4-10.4 FL Neutrophils (%) (Auto) 56 42-75 % Lymphocytes (%) (Auto) 29 12-44 % Monocytes (%) (Auto) 11 0-12 % Eosinophils (%) (Auto) 3 0-10 % Basophils (%) (Auto) 1 0-10 % Neutrophils # (Auto) 3.6 1.8-7.8 X 10^3 Lymphocytes # (Auto) 1.9 1.0-4.0 X 10^3 Monocytes # (Auto) 0.7 0.0-1.0 X 10^3 Eosinophils # (Auto) 0.2 0.0-0.3 10^3/uL Basophils # (Auto) 0.0 0.0-0.1 10^3/uL Prothrombin Time 14.5 12.2-14.7 SEC INR Comment 1.1 0.8-1.4 Activated Partial Thromboplast Time 28 24-35 SEC Sodium Level 133 L 135-145 MMOL/L Potassium Level 4.7 3.6-5.0 MMOL/L Chloride Level 100 98-107 MMOL/L Carbon Dioxide Level 20 L 21-32 MMOL/L Anion Gap 13 5-14 MMOL/L Blood Urea Nitrogen 15 7-18 MG/DL Creatinine 1.00 0.60-1.30 MG/DL Estimat Glomerular Filtration Rate 56 BUN/Creatinine Ratio 15 Glucose Level 237 H 70-105 MG/DL Calcium Level 8.5 8.5-10.1 MG/DL Corrected Calcium 9.1 8.5-10.1 MG/DL Total Bilirubin 0.5 0.1-1.0 MG/DL Aspartate Amino Transf (AST/SGOT) 54 H 5-34 U/L Alanine Aminotransferase (ALT/SGPT) 46 0-55 U/L Alkaline Phosphatase 131 40-136 U/L Troponin I < 0.028 <0.028 NG/ML B-Type Natriuretic Peptide 29.0 <100.0 PG/ML Total Protein 8.0 6.4-8.2 GM/DL Albumin 3.2 3.2-4.5 GM/DL Urine Color YELLOW Urine Clarity CLEAR Urine pH 5.5 5-9 Urine Specific [place] 1.025 H 1.016-1.022 Urine Protein 3+ H NEGATIVE Urine Glucose (UA) NEGATIVE NEGATIVE Urine Ketones NEGATIVE NEGATIVE Urine Nitrite NEGATIVE NEGATIVE Urine Bilirubin NEGATIVE NEGATIVE Urine Urobilinogen 0.2 < = 1.0 MG/DL Urine Leukocyte Esterase NEGATIVE NEGATIVE Urine RBC (Auto) TRACE-I NEGATIVE Urine RBC 0-2 /HPF Urine WBC 0-2 /HPF Urine Squamous Epithelial Cells 0-2 /HPF Urine Crystals NONE /LPF Urine Bacteria NEGATIVE /HPF Urine Casts PRESENT /LPF Urine Hyaline Casts 2-5 H /LPF Urine Granular Casts 0-2 H /LPF Urine Mucus NEGATIVE /LPF Urine Culture Indicated NO My Orders Orders - MARTINE AGUILA Respiratory Virus Panel By Pcr (03/05/19 09:49) Cbc With Automated Diff (03/05/19 09:49) Comprehensive Metabolic Panel (03/05/19 09:49) Protime With Inr (03/05/19 09:49) Partial Thromboplastin Time (03/05/19 09:49) Troponin I (03/05/19 09:49) Continuous Ekg Monitoring (03/05/19 09:49) Ekg Tracing (03/05/19 09:49) BNP (03/05/19 09:49) Ed Iv/Invasive Line Start (03/05/19 09:49) Ns Iv 500 Ml (Sodium Chloride 0.9%) (03/05/19 09:49) Albuterol/Ipra Inhalation Soln (Duoneb I (03/05/19 10:00) Svn Small Volume Nebulizer (03/05/19 09:49) Chest Pa/Lat (2 View) (03/05/19 09:56) Ua Culture If Indicated (03/05/19 09:56) Ed Iv/Invasive Line Start (03/05/19 11:10) Ns Iv 1000 Ml (Sodium Chloride 0.9%) (03/05/19 11:10) Medications Given in ED Current Medications Medications Dose Ordered Sig/Bridger Route Start Time Stop Time Status Last Admin Dose Admin Albuterol/ Ipratropium 3 ml ONCE ONCE INH 03/05/19 10:00 03/05/19 10:01 DC 03/05/19 10:39 3 ML Sodium Chloride 500 ml @ 0 mls/hr Q0M ONCE IV 03/05/19 09:49 03/05/19 09:52 DC 03/05/19 10:10 999 MLS/HR Vital Signs/I&O 03/05/19 03/05/19 03/05/19 09:38 09:38 10:40 Temp 36.9 Pulse 74 Resp 19 B/P (MAP) 156/99 (118) Pulse Ox 97 O2 Delivery Room Air Room Air Room Air Capillary Refill : Less Than 3 Seconds Blood Pressure Mean: 118 Progress Note #1: Time: 09:55 Progress Note Start with 500 cc of fluid check some labs including a troponin and EKG. Dehydration versus acute secondary to recent viral illness as pneumonia versus?. Plan to get her respiratory PCR panel and chest x-ray. UA. Progress Note #2: Time: 12:16 Progress Note After her liter fluid bolus the patient's feeling much better. We've explained her labs. We have explained the plan to follow up closely next week with primary care and that she is experiencing expected fatigue and debility related to her recent viral illness. We have answered her and her 's questions and they are excited to get to go home. ECG Initial ECG Impression Date: Mar 05, 2019 Initial ECG Impression Time: 10:02 Initial ECG Rate: 69 Initial ECG Rhythm: Normal Sinus Initial ECG Intervals: Normal Initial ECG Impression: Normal, Nonspecific Changes Initial ECG Comparisson: No Previous ECG Available Comment Normal sinus rhythm without ST elevation or depression. Diagnostic Imaging Diagonstic Imaging: Xray Plain Films/CT/US/NM/MRI: chest (1v) Comments NAME: IGOR SALGADO MED REC#: [id number] PT STATUS: REG ER : 1955 PHYSICIAN: MARTINE AGUILA MD ADMIT DATE: 03/05/19/ER Draft Date of Exam:03/05/19 CHEST PA/LAT (2 VIEW) INDICATION: Lower respiratory infection EXAM: PA and lateral chest Heart size and pulmonary vascularity are normal. Lungs are clear. There are no effusions or pneumothoraces. IMPRESSION: Negative chest. Dictated on workstation # [id number] Dict: 03/05/19 1029 Trans: 03/05/19 1030 [facility] [id number] Interpreted by: YESSY ARREOLA MD Electronically signed by: Reviewed: Reviewed by Me Consults Consults : Consulting Physician: BENJI CEE DO Consults Notes Discussed case lab imaging findings with Dr. Cee who is statistical consultant for [facility] and sent the patient for evaluation. She will contact primary care provider and we'll encourage outpatient follow-up. Departure Impression Primary Impression: Fatigue Qualified Codes: G93.3 - Postviral fatigue syndrome Additional Impression: Influenza Disposition: 01 HOME, SELF-CARE Condition: Stable Departure-Patient Inst. Decision time for Depature: 12:18 Referrals: [facility] (PCP) Primary Care Physician LAUREEN BROWN (Family) Primary Care Physician Patient Instructions: Fatigue (DC) Add. Discharge Instructions: Plan to follow-up early next week with primary care to recheck. Tylenol, Motrin, fluids to drink. Return to the ER if you have any worsening symptoms such as chest pain, shortness of breath or other. All discharge instructions reviewed with patient and/or family. Voiced understanding. MARTINE AGUILA Mar 05, 2019 09:56
[2019-03-05] MEDS ORDERED: RT-ALBUTEROL/IPRATROPIUM 3 ML (DUONEB) VIAL INH ONE (10:00)
[2019-03-05 10:03] LABS: BASOPHILS % (AUTO) 1 % (0-10); EOSINOPHILS # (AUTO) 0.2 10^3/uL (0.0-0.3); EOSINOPHILS % (AUTO) 3 % (0-10); HEMATOCRIT 45 % (35-52); HEMOGLOBIN 15.7 G/DL (11.5-16.0); LYMPHOCYTES # (AUTO) 1.9 X 10^3 (1.0-4.0); LYMPHOCYTES % (AUTO) 29 % (12-44); MEAN CORPUSCULAR HEMOGLOBIN 32 PG (25-34); MEAN CORPUSCULAR HGB CONC 35 G/DL (32-36); MEAN CORPUSCULAR VOLUME 90 FL (80-99); MEAN PLATELET VOLUME 10.6 FL (7.4-10.4); MONOCYTES # (AUTO) 0.7 X 10^3 (0.0-1.0); MONOCYTES % (AUTO) 11 % (0-12); NEUTROPHILS # (AUTO) 3.6 X 10^3 (1.8-7.8); NEUTROPHILS % (AUTO) 56 % (42-75); PLATELET COUNT 314 10^3/uL (130-400); RED CELL DISTRIBUTION WIDTH 15.6 % (10.0-14.5); WHITE BLOOD COUNT 6.4 10^3/uL (4.3-11.0)
[2019-03-05 10:19] LABS: INR 1.1 (0.8-1.4); PROTHROMBIN TIME PATIENT 14.5 SEC (12.2-14.7)
[2019-03-05 10:28] LABS: ALANINE AMINOTRANSFERASE 46 U/L (0-55); ALBUMIN 3.2 GM/DL (3.2-4.5); ALKALINE PHOSPHATASE 131 U/L (40-136); BILIRUBIN,TOTAL 0.5 MG/DL (0.1-1.0); BUN/CREATININE RATIO 15; CALCIUM 8.5 MG/DL (8.5-10.1); CARBON DIOXIDE 20 MMOL/L (21-32); CHLORIDE 100 MMOL/L (98-107); GFR ESTIMATED 56; GLUCOSE 237 MG/DL (70-105); POTASSIUM 4.7 MMOL/L (3.6-5.0); SODIUM 133 MMOL/L (135-145)
--- NOTE | 2019-03-05 10:30 | Diagnostic Imaging Report ---
INDICATION: Lower respiratory infection EXAM: PA and lateral chest Heart size and pulmonary vascularity are normal. Lungs are clear. There are no effusions or pneumothoraces. IMPRESSION: Negative chest. Dictated by: Dictated on workstation # [id number]
[2019-03-05] MEDS ORDERED: NS IV 1000 ML 1,000 ML IV SCH (11:10)
[2019-03-05 11:27] LABS: BILIRUBIN,URINE NEGATIVE (NEGATIVE); CLARITY,URINE CLEAR; COLOR,URINE YELLOW; GLUCOSE, URINE (UA) NEGATIVE (NEGATIVE); KETONES,URINE NEGATIVE (NEGATIVE); LEUKOCYTE ESTERASE ,URINE NEGATIVE (NEGATIVE); NITRITE,URINE NEGATIVE (NEGATIVE); PH,URINE 5.5 (5-9); PROTEIN,URINE 3+ (NEGATIVE)
[2019-03-05 11:36] LABS: BACTERIA,URINE NEGATIVE /HPF; RBC,URINE 0-2 /HPF; SQUAMOUS EPITHELIAL CELL,UR 0-2 /HPF; WBC,URINE 0-2 /HPF
[2019-03-05 11:37] LABS: GRANULAR CASTS,URINE 0-2 /LPF
[2019-03-05 12:25] VITALS: BP 132/90
== END 2019-03-05 12:25 | disposition home or self-care (01) ==
LOC: EDUNIT# 09:25 → ER 09:29
DX: J11.1 Influenza due to unidentified influenza virus with other respiratory manifestations (principal); E11.9 Type 2 diabetes mellitus without complications; I10 Essential (primary) hypertension; F41.9 Anxiety disorder, unspecified; B19.20 Unspecified viral hepatitis C without hepatic coma; Z85.05 Personal history of malignant neoplasm of liver; Z85.028 Personal history of other malignant neoplasm of stomach; Z79.84 Long term (current) use of oral hypoglycemic drugs; Z87.891 Personal history of nicotine dependence; Z77.22 Contact with and (suspected) exposure to environmental tobacco smoke (acute) (chronic); Z90.89 Acquired absence of other organs; Z82.49 Family history of ischemic heart disease and other diseases of the circulatory system
CPT/HCPCS: 36415; 71046; 80053; 81000; 83880; 84484; 85025; 85610; 85730; 93005; 94640; 96360; 96361

== ENCOUNTER 2019-03-31 11:54 | Emergency (ER) | payer BC, MEDICAID ==
[~2019-03-31] VITALS: Ht 160 cm; Wt 45.5 kg
--- NOTE | 2019-03-31 12:05 | NUR ---
1L ns bolus initiated in trasnit to ED per cc ems, complete. 1000ml intake.
[2019-03-31 12:07] LABS: BASOPHILS % (AUTO) 0 % (0-10); EOSINOPHILS # (AUTO) 0.1 10^3/uL (0.0-0.3); EOSINOPHILS % (AUTO) 1 % (0-10); HEMATOCRIT 52 % (35-52); HEMOGLOBIN 18.3 G/DL (11.5-16.0); LYMPHOCYTES # (AUTO) 2.2 X 10^3 (1.0-4.0); LYMPHOCYTES % (AUTO) 27 % (12-44); MEAN CORPUSCULAR HEMOGLOBIN 32 PG (25-34); MEAN CORPUSCULAR HGB CONC 35 G/DL (32-36); MEAN CORPUSCULAR VOLUME 90 FL (80-99); MEAN PLATELET VOLUME 11.4 FL (7.4-10.4); MONOCYTES # (AUTO) 0.7 X 10^3 (0.0-1.0); MONOCYTES % (AUTO) 9 % (0-12); NEUTROPHILS % (AUTO) 62 % (42-75); PLATELET COUNT 269 10^3/uL (130-400); RED CELL DISTRIBUTION WIDTH 15.7 % (10.0-14.5)
--- NOTE | 2019-03-31 12:19 | NUR ---
Pastoral care in room visiting with pt @ this time.
[2019-03-31] MEDS ORDERED: LORazepam INJ 2 MG/ML (ATIVAN) VIAL IVP PRN (12:30)
[2019-03-31 12:34] LABS: ALANINE AMINOTRANSFERASE 72 U/L (0-55); ALBUMIN 3.1 GM/DL (3.2-4.5); ALKALINE PHOSPHATASE 133 U/L (40-136); BILIRUBIN,TOTAL 0.6 MG/DL (0.1-1.0); BUN/CREATININE RATIO 16; CARBON DIOXIDE 20 MMOL/L (21-32); CHLORIDE 101 MMOL/L (98-107); GFR ESTIMATED > 60; GLUCOSE 250 MG/DL (70-105); POTASSIUM 4.5 MMOL/L (3.6-5.0); SODIUM 134 MMOL/L (135-145); TOTAL PROTEIN 7.8 GM/DL (6.4-8.2)
--- NOTE | 2019-03-31 12:36 | Diagnostic Imaging Report ---
EXAMINATION: Chest radiograph, portable AP view. DATE: 03/31/2019 12:17 PM hours. INDICATION: 63-year-old female, weakness COMPARISON: March 05, 2019. FINDINGS: Heart size and mediastinal contours are unremarkable. There is no identified pneumothorax. There is eventration of the right hemidiaphragm. There is no large pleural effusion. There is no identified focal airspace consolidation. IMPRESSION: No identified acute cardiopulmonary abnormality. Dictated by: Dictated on workstation # [id number]
--- NOTE | 2019-03-31 12:48 | ED General ---
General Chief Complaint: General Problems/Pain Stated Complaint: WEAKNESS Nursing Triage Note: Pt to room #9 via CC ems cart from home with c/o generalized weakness. [employer], cc ems accessed 20g iv to Lt a/c and initiated ns fluid bolus (900ml intake). Pt reports she was scheduled for oncologist appt @ [facility] on this day, but was too weak to get out of bed. Pt reports generalized weakness for x2 wks that continues to increase in severity. Pt states, "it feels like my eyelids are a thousand pounds." Pt denies pain, discomfort, fever, chills, or SOA. Pt currently being treated @ d/t liver cancer. A&OX4. Nursing Sepsis Screen: No Definite Risk Source of Information: Patient, EMS Exam Limitations: No Limitations History of Present Illness Date Seen by Provider: Mar 31, 2019 Time Seen by Provider: 12:45 Initial Comments To ER with reports of severe weakness. She arrives to ER by EMS. She has a history of untreated hepatitis C which has unfortunately lead to hepatocellular carcinoma being treated at the [facility] with Lenvatinib start date of 11/24/18. On 1115 she had a melt score of 7. Starting about one month ago she developed a gastroenteritis type illness which subsided but has had significant weight loss since then and has had progressively worsening weakness for the past 2 weeks. Today she was unable to get out of bed. She does have some shortness of breath, denies chest pain, denies nausea vomiting abdominal pain denies fevers or chills. Timing/Duration: Getting Worse Severity: Moderate Associated Systoms: Weakness Allergies and Home Medications Allergies Coded Allergies: No Known Drug Allergies (Unverified , 10/03/18) Home Medications Hydrocodone Bit/Acetaminophen 1 Tab Tab, 1 EACH PO Q4-6HR PRN for PAIN-MODERATE For pain related to liver mass Prescribed by: YESSY SANCHEZ on 10/03/18 1713 Hydrocodone Bit/Acetaminophen 1 Tab Tab, 1 EACH PO Q4-6HR PRN for PAIN-MODERATE Prescribed by: YESSY SANCHEZ on 02/23/19 0545 Lorazepam 1 Mg Tablet, 1 MG PO DAILY PRN for ANXIETY Prescribed by: YESSY SANCHEZ on 02/23/19 0545 Ondansetron 4 Mg Tab.rapdis, 4 MG PO Q6H PRN for NAUSEA/VOMITING Prescribed by: YESSY SANCHEZ on 10/03/18 6622 Patient Home Medication List Home Medication List Reviewed: Yes Review of Systems Review of Systems Constitutional: see HPI, malaise, weakness EENTM: see HPI Respiratory: no symptoms reported Cardiovascular: no symptoms reported Genitourinary: no symptoms reported Musculoskeletal: no symptoms reported Skin: no symptoms reported Psychiatric/Neurological: No Symptoms Reported Hematologic/Lymphatic: No Symptoms Reported Past Hfpipmx-Bwbxzu-Gxdftj Hx Patient Social History Alcohol Use: Denies Use Recreational Drug Use: No Smoking Status: Never a Smoker Type Used: Cigarettes 2nd Hand Smoke Exposure: Yes Recent Foreign Travel: No Contact w/Someone Who Travel: No Recent Infectious Disease Expo: No Physical Abuse: No Sexual Abuse: No Past Medical History Surgeries: Yes (tubal 4, liver biopsy) Tonsillectomy Respiratory: No Cardiac: Yes Hypertension Neurological: No Reproductive Disorders: Yes Genitourinary: No Gastrointestinal: No Musculoskeletal: No Endocrine: Yes Diabetes, Non-Insulin dep HEENT: No Cancer: Yes Liver, Stomach Did You Recieve Any Treatments: Yes What Type of Treatment Did You: Chemotherapy, Radiation Psychosocial: Yes Anxiety Integumentary: No Blood Disorders: Yes (hep c) Family Medical History Heart Disease Physical Exam Vital Signs Vital Signs - First Documented 03/31/19 11:55 Temp 36.1 Pulse 76 Resp 13 B/P (MAP) 134/106 (115) Pulse Ox 97 O2 Delivery Room Air Capillary Refill : Less Than 3 Seconds Height, Weight, BMI Height: 5'4.00" Weight: 138lbs. oz. 62.074358gx; 17.00 BMI Method:Stated General Appearance: No Apparent Distress, Chronically ill, Thin Eyes: Bilateral Eye Normal Inspection, Bilateral Eye PERRL, Bilateral Eye EOMI HEENT: PERRL/EOMI, Normal ENT Inspection Neck: Full Range of Motion, Normal Inspection Respiratory: No Accessory Muscle Use, No Respiratory Distress Gastrointestinal: Normal Bowel Sounds, Non Tender, Soft Extremity: Normal Capillary Refill, Normal Inspection, No Pedal Edema Neurologic/Psychiatric: Alert, Oriented x3 Skin: Normal Color, Warm/Dry Progress/Results/Core Measures Suspected Sepsis Recent Fever Within 48 Hours: No Infection Criteria Present: None New/Unexplained Altered Menta: No Sepsis Screen: No Definite Risk SIRS Temperature: Pulse: 76 Respiratory Rate: 13 Laboratory Tests 03/31/19 11:55: White Blood Count 8.0 Blood Pressure 134 /106 Mean: 115 Laboratory Tests 03/31/19 11:55: Creatinine 0.80, INR Comment 1.0, Platelet Count 269, Total Bilirubin 0.6 Results/Orders Lab Results Laboratory Tests Test 03/31/19 11:55 03/31/19 14:20 03/31/19 15:48 Range/Units White Blood Count 8.0 4.3-11.0 10^3/uL Red Blood Count 5.77 4.35-5.85 10^6/uL Hemoglobin 18.3 H 11.5-16.0 G/DL Hematocrit 52 35-52 % Mean Corpuscular Volume 90 80-99 FL Mean Corpuscular Hemoglobin 32 25-34 PG Mean Corpuscular Hemoglobin Concent 35 32-36 G/DL Red Cell Distribution Width 15.7 H 10.0-14.5 % Platelet Count 269 130-400 10^3/uL Mean Platelet Volume 11.4 H 7.4-10.4 FL Neutrophils (%) (Auto) 62 42-75 % Lymphocytes (%) (Auto) 27 12-44 % Monocytes (%) (Auto) 9 0-12 % Eosinophils (%) (Auto) 1 0-10 % Basophils (%) (Auto) 0 0-10 % Neutrophils # (Auto) 5.0 1.8-7.8 X 10^3 Lymphocytes # (Auto) 2.2 1.0-4.0 X 10^3 Monocytes # (Auto) 0.7 0.0-1.0 X 10^3 Eosinophils # (Auto) 0.1 0.0-0.3 10^3/uL Basophils # (Auto) 0.0 0.0-0.1 10^3/uL Prothrombin Time 13.8 12.2-14.7 SEC INR Comment 1.0 0.8-1.4 Sodium Level 134 L 135-145 MMOL/L Potassium Level 4.5 3.6-5.0 MMOL/L Chloride Level 101 98-107 MMOL/L Carbon Dioxide Level 20 L 21-32 MMOL/L Anion Gap 13 5-14 MMOL/L Blood Urea Nitrogen 13 7-18 MG/DL Creatinine 0.80 0.60-1.30 MG/DL Estimat Glomerular Filtration Rate > 60 BUN/Creatinine Ratio 16 Glucose Level 250 H 70-105 MG/DL Calcium Level 9.0 8.5-10.1 MG/DL Corrected Calcium 9.7 8.5-10.1 MG/DL Total Bilirubin 0.6 0.1-1.0 MG/DL Aspartate Amino Transf (AST/SGOT) 68 H 5-34 U/L Alanine Aminotransferase (ALT/SGPT) 72 H 0-55 U/L Alkaline Phosphatase 133 40-136 U/L B-Type Natriuretic Peptide 17.6 <100.0 PG/ML Total Protein 7.8 6.4-8.2 GM/DL Albumin 3.1 L 3.2-4.5 GM/DL Thyroid Stimulating Hormone (TSH) 8.96 H 0.35-4.94 UIU/ML Free Thyroxine 0.88 0.70-1.48 NG/DL Troponin I < 0.028 <0.028 NG/ML Urine Color YELLOW Urine Clarity CLEAR Urine pH 5.5 5-9 Urine Specific [place] 1.025 H 1.016-1.022 Urine Protein 3+ H NEGATIVE Urine Glucose (UA) NEGATIVE NEGATIVE Urine Ketones NEGATIVE NEGATIVE Urine Nitrite NEGATIVE NEGATIVE Urine Bilirubin NEGATIVE NEGATIVE Urine Urobilinogen 0.2 < = 1.0 MG/DL Urine Leukocyte Esterase NEGATIVE NEGATIVE Urine RBC (Auto) 1+ H NEGATIVE Urine RBC 2-5 H /HPF Urine WBC 0-2 /HPF Urine Crystals PRESENT H /LPF Urine Amorphous Sediment LARGE KAY URATES H /LPF Urine Bacteria TRACE /HPF Urine Casts PRESENT /LPF Urine Hyaline Casts 10-25 H /LPF Urine Mucus NEGATIVE /LPF Urine Culture Indicated NO My Orders Orders - VERONIKA ALDANA APRN Cbc With Automated Diff (03/31/19 12:02) Comprehensive Metabolic Panel (03/31/19 12:02) Ua Culture If Indicated (03/31/19 12:02) Thyroid Stimulating Hormone (03/31/19 12:02) Free T4 (Free Thyroxine) (03/31/19 12:02) Chest 1 View, Ap/Pa Only (03/31/19 12:02) Ct Angio Chest W (03/31/19 12:24) BNP (03/31/19 12:24) Lorazepam Injection (Ativan Injection) (03/31/19 12:30) Protime With Inr (03/31/19 12:48) Troponin I (1/14/20 12:55) Ns Iv 500 Ml (Sodium Chloride 0.9%) (03/31/19 13:09) Ns Iv 500 Ml (Sodium Chloride 0.9%) (03/31/19 14:15) Medications Given in ED Current Medications Medications Dose Ordered Sig/Bridger Route Start Time Stop Time Status Last Admin Dose Admin Lorazepam 0.5 mg ONCE PRN IVP 03/31/19 12:30 03/31/19 12:35 0.5 MG Vital Signs/I&O 03/31/19 11:55 Temp 36.1 Pulse 76 Resp 13 B/P (MAP) 134/106 (115) Pulse Ox 97 O2 Delivery Room Air Capillary Refill : Less Than 3 Seconds Blood Pressure Mean: 115 Diagnostic Imaging Diagonstic Imaging: Xray Comments NAME: IGOR SALGADO MED REC#: [id number] PT STATUS: REG ER : 1955 PHYSICIAN: VERONIKA ALDANA APRN ADMIT DATE: 03/31/19/ER Draft Date of Exam:03/31/19 CHEST 1 VIEW, AP/PA ONLY EXAMINATION: Chest radiograph, portable AP view. DATE: 03/31/2019 12:17 PM hours. INDICATION: 63-year-old female, weakness COMPARISON: March 05, 2019. FINDINGS: Heart size and mediastinal contours are unremarkable. There is no identified pneumothorax. There is eventration of the right hemidiaphragm. There is no large pleural effusion. There is no identified focal airspace consolidation. IMPRESSION: No identified acute cardiopulmonary abnormality. Dictated on workstation # [id number] Dict: 03/31/19 1228 Trans: 03/31/19 1236 [facility] [id number] Interpreted by: AVILA KAY MD Electronically signed by: NAME: IGOR SALGADO MED REC#: [id number] PT STATUS: REG ER : 1955 PHYSICIAN: VERONIKA ALDANA APRN ADMIT DATE: 03/31/19/ER Draft Date of Exam:03/31/19 CT ANGIO CHEST W EXAMINATION: CT angiography of the chest. TECHNIQUE: Contrast enhanced thin section helical images were obtained through the chest with intravenous contrast timed for the optimal opacification of the arterial structures per CTA protocol. Post-processing, reconstructions and interpretation of angiographic images of the vessels was performed. 3D MIP reconstructions were performed and reviewed. All CT scans use one or more of the following dose optimizing techniques: automated exposure control, MA and/or KvP adjustment based on a patient size and exam type, or iterative reconstruction. HISTORY: Shortness of breath, liver cancer COMPARISON: None available. FINDINGS: No pulmonary embolism. Aorta is normal in caliber. The lungs are clear without edema or pneumonia. No pleural effusion or pneumothorax. No suspicious nodules. Heart size is normal. No pericardial effusion. There is no axillary or supraclavicular lymphadenopathy. There is no mediastinal lymphadenopathy. Limited views of the upper abdomen show ascites. Hypoattenuating lesion in segment seven may represent the reported history of liver cancer. There is laura hepatis lymphadenopathy. The adenopathy appears decreased from prior exam but is still large. There is a chronic right posterior 11th rib fracture. There is a sclerotic lesion at T11 and also involving lower portion of T10 upper portion T12. IMPRESSION: 1. No pulmonary embolism. 2. Limited views of the upper abdomen show ascites, liver mass and laura hepatis lymphadenopathy. Dictated on workstation # [id number] Dict: 03/31/19 1406 Trans: 03/31/19 1417 [facility] [id number] Interpreted by: YEN MARTINES MD Electronically signed by: Departure Communication (Admissions) She received a 1 L fluid bolus by EMS and 1 L from us here in the emergency room. Remains very fatigued, unable to find other etiology for this, this may si mply be an effect of the Lenvatinib. Attempted to call her oncologist at but their office closes at 4 PM, is now 4:03 PM. Impression Primary Impression: Fatigue Additional Impression: Effect of chemotherapy Disposition: HOME, SELF-CARE Condition: Stable Departure-Patient Inst. Decision time for Depature: 16:02 Referrals: [facility] (PCP) Primary Care Physician LAUREEN BROWN (Family) Primary Care Physician Patient Instructions: When Your Cancer Treatment Makes You Tired, Fatigue (DC) Add. Discharge Instructions: 1. Return to ER for any concerns 3. Follow-up with your doctor next week 3. All discharge instructions reviewed with patient and/or family. Voiced understanding. Scripts [Bedside Commode] No Conflict Check EA EXT PRN, #1 Prov: VERONIKA ALDANA [employer]GER [employer] 03/31/19 Trazodone HCl (Trazodone HCl) 50 Mg Tablet 50 MG PO HS PRN for INSOMNIA, #20 TAB Prov: VERONIKA ALDANA APRN 03/31/19 VERONIKA ALDANA APRN Mar 31, 2019 12:48
[2019-03-31 12:55] LABS: FREE T4 (FREE THYROXINE) 0.88 NG/DL (0.70-1.48)
[2019-03-31 13:01] LABS: PROTHROMBIN TIME PATIENT 13.8 SEC (12.2-14.7)
[2019-03-31] MEDS ORDERED: NS IV 500 ML 500 ML IV STA (13:09)
[2019-03-31] MEDS ORDERED: NS IV 500 ML 500 ML IV SCH (14:15)
--- NOTE | 2019-03-31 14:17 | Diagnostic Imaging Report ---
EXAMINATION: CT angiography of the chest. TECHNIQUE: Contrast enhanced thin section helical images were obtained through the chest with intravenous contrast timed for the optimal opacification of the arterial structures per CTA protocol. Post-processing, reconstructions and interpretation of angiographic images of the vessels was performed. 3D MIP reconstructions were performed and reviewed. All CT scans use one or more of the following dose optimizing techniques: automated exposure control, MA and/or KvP adjustment based on a patient size and exam type, or iterative reconstruction. HISTORY: Shortness of breath, liver cancer COMPARISON: None available. FINDINGS: No pulmonary embolism. Aorta is normal in caliber. The lungs are clear without edema or pneumonia. No pleural effusion or pneumothorax. No suspicious nodules. Heart size is normal. No pericardial effusion. There is no axillary or supraclavicular lymphadenopathy. There is no mediastinal lymphadenopathy. Limited views of the upper abdomen show ascites. Hypoattenuating lesion in segment seven may represent the reported history of liver cancer. There is laura hepatis lymphadenopathy. The adenopathy appears decreased from prior exam but is still large. There is a chronic right posterior 11th rib fracture. There is a sclerotic lesion at T11 and also involving lower portion of T10 upper portion T12. IMPRESSION: 1. No pulmonary embolism. 2. Limited views of the upper abdomen show ascites, liver mass and laura hepatis lymphadenopathy. Dictated by: Dictated on workstation # [id number]
[2019-03-31 15:54] LABS: BILIRUBIN,URINE NEGATIVE (NEGATIVE); CLARITY,URINE CLEAR; COLOR,URINE YELLOW; GLUCOSE, URINE (UA) NEGATIVE (NEGATIVE); KETONES,URINE NEGATIVE (NEGATIVE); LEUKOCYTE ESTERASE ,URINE NEGATIVE (NEGATIVE); NITRITE,URINE NEGATIVE (NEGATIVE); PH,URINE 5.5 (5-9); PROTEIN,URINE 3+ (NEGATIVE)
[2019-03-31 16:36] LABS: AMORPHOUS SEDIMENT,UR LARGE AMOR URATES /LPF; BACTERIA,URINE TRACE /HPF; WBC,URINE 0-2 /HPF
[2019-03-31] MEDS ORDERED: TRZ50T PO (16:58)
[2019-03-31] MEDS ORDERED: COMMODE EXT (17:01)
[2019-03-31 17:05] VITALS: BP 138/97
== END 2019-03-31 17:05 | disposition home or self-care (01) ==
LOC: EDUNIT# 11:54 → ER 11:56
DX: R53.83 Other fatigue (principal); T45.1X5A Adverse effect of antineoplastic and immunosuppressive drugs, initial encounter; B19.20 Unspecified viral hepatitis C without hepatic coma; I10 Essential (primary) hypertension; E11.9 Type 2 diabetes mellitus without complications; F41.9 Anxiety disorder, unspecified; Z82.49 Family history of ischemic heart disease and other diseases of the circulatory system; Z85.05 Personal history of malignant neoplasm of liver; Z85.028 Personal history of other malignant neoplasm of stomach; Z77.22 Contact with and (suspected) exposure to environmental tobacco smoke (acute) (chronic); Z90.89 Acquired absence of other organs
CPT/HCPCS: 36415; 51702; 71045; 71275; 80053; 81000; 83880; 84439; 84443; 84484; 85025; 85610; 96361; 96374